=== PATIENT | male | born 1995 | race Caucasian/White ===

== ENCOUNTER 2018-04-08 09:45 | Emergency (ER) | payer SELFPAY ==
[2018-04-08] MEDS ORDERED: PROPARACAINE HCL OPTH 15ML BTL OPTH ONE (09:59)
[2018-04-08] MEDS ORDERED: ERYTHROMYCIN OPTH OINT 3.5GM OPTH ONE (10:12)
--- NOTE | 2018-04-08 10:19 | Emergency Department Record ---
History of Present Illness - General Chief complaint: Eye Problem Stated complaint: METAL IN LEFT EYE Time Seen by Provider: 04/08/18 09:48 Source: Patient Mode of Arrival: Ambulatory Limitations: No limitations [place] [facility] [place] of Symptoms: No - History of Present Illness Initial comments: The patient is here due to L eye pain for 1-2 hours. He was grinding metal at work and did have safety glasses on and felt like something got into the L eye. He did flush the eye out but since the FB sensation did not resolve he was told to come to the ER. The patient denies any visual changes and states his Td is UTD. chief complaint: Eye pain Onset/Timin -: Hour(s) Onset Description: Sudden Location: Left eye Place: Work If Injury: Occurred while hammering/grinding Eye Symptoms: Pain Severity scale (1-10): 6 If Pain, Quality: Aching Consistency: Constant Associated Symptoms: None Treatments Prior to Arrival: Irrigated eye - Related Data Visual acuity (L) = 20/: 25 Visual acuity (R) = 20/: 20 With correction: No Hx Tetanus Toxoid Vaccination: No Patient Tetanus UTD (within 5 yrs): No Home Medications Medication Instructions Recorded Confirmed Last Taken No Home Med [NO HOME MEDS] 04/08/18 04/08/18 Unknown Allergies Allergy/AdvReac Type Severity Reaction Status Date / Time No Known Drug Allergies Allergy Unknown Verified 04/08/18 09:58 [NO KNOWN DRUG ALLERGIES] Travel Screening - Travel/Exposure Within Last 30 Days Have you traveled within the last 30 days?: No Review of Systems Constitutional: Denies: Chills, Fever, Other Eyes: Reports: Eye pain ENT: Denies: Congestion Respiratory: Denies: Cough, Dyspnea Past Medical History - SOCIAL HISTORY Smoking Status: Current every day smoker Alcohol Use: None Drug Use: None - RESPIRATORY Hx Respiratory Disorders: No - CARDIOVASCULAR Hx Cardio Disorders: No - NEURO Hx Neuro Disorders: No - GI Hx GI Disorders: No - Hx Genitourinary Disorders: No - ENDOCRINE Hx Endocrine Disorders: No - MUSCULOSKELETAL Hx Musculoskeletal Disorders: No - PSYCH Hx Psych Problems: No - HEMATOLOGY/ONCOLOGY Hx Hematology/Oncology Disorders: No Family Medical History Any Significant Family History?: No Physical Exam - General General Appearance: Alert, Oriented x3, Cooperative, No acute distress - Head Head exam: Atraumatic, Normocephalic, Normal inspection - Eye Eye exam: Normal appearance, PERRL, Conjunctival injection (Mild L eye.), EOMI, Other (There was a small FB removed from the L upper eyelid with a Qtip after lid eversion. There is a very tiny 1 mm abrasion at the 4:00 position of the L cornea on flourescein staining. ). negative: Periorbital swelling, Periorbital tenderness Visual acuity (L) = 20/: 25 Visual acuity (R) = 20/: 20 With correction: No Course Vital Signs 04/08/18 09:54 Temperature 97.9 F Pulse Rate 71 Respiratory 20 Rate Blood Pressure 132/74 Pulse Ox 98 - Reevaluation(s) Reevaluation #1: I did discuss the need for the eye ointment for 3 days. He is to return to the ER in 2 days if not completely better. 04/08/18 10:18 Disposition Disposition: Discharge Clinical Impression: Abrasion of eye Qualifiers: Encounter type: initial encounter Laterality: left Qualified Code(s): S05.8X2A - Other injuries of left eye and orbit, initial encounter Disposition: Home, Self-Care Condition: (2) Stable Instructions: Corneal Abrasion (ED) Additional Instructions: Please use Tylenol or Motrin for pain and use the Emycin eye ointment 4 times a day in the L eye for 3 days. Please return to the ER if not 100% better in 2 days. Forms: Patient Portal Access Time of Disposition: 10:20 Quality - Quality Measures Quality Measures: N/A - Blood Pressure Screening View Details: Yes Does Patient Have Any of the Following: No Blood Pressure Classification: Pre-Hypertensive BP Reading Systolic Measurement: 132 Diastolic Measurement: 74 Screening for High Blood Pressure: < Pre-Hypertensive BP, F/U Documented > [ [id number]] Pre-Hypertensive Follow-up Interventions: Referral to alternative/primary care provider.
== END 2018-04-08 10:48 | disposition home or self-care (01) ==
LOC: ER 09:45
DX: T15.82XA Foreign body in other and multiple parts of external eye, left eye, initial encounter (principal); S05.02XA Injury of conjunctiva and corneal abrasion without foreign body, left eye, initial encounter; Y92.63 Factory as the place of occurrence of the external cause; Y99.0 Civilian activity done for income or pay; F17.210 Nicotine dependence, cigarettes, uncomplicated
CPT/HCPCS: 65205; 99283